=== PATIENT | female | born 1960 | race Caucasian/White ===

== ENCOUNTER 2018-12-25 08:13 | Day surgery (SDC) | payer OTHER ==
[~2018-12-25 08:13] MED LIST: CEFAZOLIN 2 GM/50 ML (PMX) 50 ML IVPB; SOD CHLORIDE 0.9% 1,000 ML IV
[2018-12-25] MEDS ORDERED: POLYMYXIN/BACITRACIN 1L IRRIG (11:41)
[2018-12-25] MEDS ORDERED: SUCCINYLCHOLINE CHLORIDE 100 MG/5 ML SYG IV (11:55)
[2018-12-25] MEDS ORDERED: LIDOCAINE 2% (SDV) 5 ML INJ (11:55)
[2018-12-25] MEDS ORDERED: ROPIVACAINE 0.5 % 30 ML VIAL (11:55)
[2018-12-25] MEDS ORDERED: PROPOFOL 20 ML (11:55)
[2018-12-25] MEDS ORDERED: ROCURONIUM 50 MG INJ (11:55)
[2018-12-25] MEDS ORDERED: MIDAZOLAM 1 MG/ML 2 ML INJ (11:55)
[2018-12-25] MEDS ORDERED: HYDROmorphONE 1 MG/5 ML IV SYRINGE IV ×2 (12:00)
[2018-12-25] MEDS ORDERED: PROCHLORPERAZINE 10 MG INJ IV (12:00)
[2018-12-25] MEDS ORDERED: DIPHENHYDRAMINE 50 MG INJ IV (12:00)
[2018-12-25] MEDS ORDERED: OXYCODONE/ACETAMINOPHEN (5/325) TAB PO (12:00)
[2018-12-25] MEDS ORDERED: FENTAnyl 50 MCG/ML VIAL IV ×3 (12:00)
[2018-12-25] MEDS ORDERED: MEPERIDINE 25 MG INJ IV (12:00)
[2018-12-25] MEDS ORDERED: FAMOTIDINE 20 MG INJ (12:41)
[2018-12-25] MEDS ORDERED: ONDANSETRON 4 MG INJ (12:41)
[2018-12-25] MEDS ORDERED: DEXAMETHASONE 4 MG/ML 5 ML INJ (12:41)
[2018-12-25] MEDS ORDERED: CEFAZOLIN 1 GM INJ (12:41)
[2018-12-25] MEDS ORDERED: FENTAnyl 50 MCG/ML VIAL (12:43)
[2018-12-25] MEDS ORDERED: SUGAMMADEX SODIUM 200 MG/2 ML VIAL IV (13:13)
[2018-12-25] MEDS ORDERED: KETOROLAC 30 MG INJ (13:18)
[2018-12-25] MEDS: BUPIVACAINE 0.25% (MPF) 30 ML INJ (13:24)
[2018-12-25] MEDS ORDERED: HYDROCODONE/APAP (5/325) TAB PO (13:30)
[2018-12-25] MEDS: HYDROmorphONE 1 MG/5 ML IV SYRINGE IV (13:41)
[2018-12-25] MEDS: ONDANSETRON 4 MG INJ IV (13:44)
== END 2018-12-25 16:16 | disposition home or self-care (01) ==
LOC: SDS 08:13
DX: K43.0 Incisional hernia with obstruction, without gangrene (principal)
CPT/HCPCS: 49655